=== PATIENT | male | born 1965 | race Caucasian/White ===

== ENCOUNTER 2017-09-07 18:51 | Emergency (ER) | payer BC ==
[~2017-09-07] VITALS: Ht 177.8 cm; Wt 117.9 kg
[2017-09-07] MEDS ORDERED: COZAAR 25 MG TA25 M1 PO (19:10)
[2017-09-07] MEDS ORDERED: MOBIC7.5 M1 PO (19:13)
[2017-09-07] MEDS ORDERED: NORCO 5-325 TA1 EACH PO (19:13)
[2017-09-07 19:48] LABS: ABSOLUTE NEUTROPHILS 7.7 thou/uL (1.4-8.2); BASOPHILS 0.4 % (0.0-2.0); EOSINOPHILS 2.9 % (0.0-3.0); HEMATOCRIT 42.1 % (42.0-52.0); HEMOGLOBIN 14.2 gm/dL (14.0-18.0); LYMPHOCYTES 9.3 % (24.0-44.0); MCH 29.2 pg (26.0-34.0); MCHC 33.8 g/dL (28.0-37.0); MCV 86.5 fL (80.0-100.0); MONOCYTES 9.6 % (1.0-8.0); PLATELET COUNT 212 thou/uL (150-400); POLYS 77.8 % (36.0-66.0); RBC 4.87 mil/uL (4.50-6.00); RDW 13.2 % (10.5-14.5)
[2017-09-07 19:50] LABS: CREATININE 1.7 mg/dL (0.7-1.3); POTASSIUM 3.3 mmol/L (3.5-5.1)
[2017-09-07 20:29] LABS: URINE BILIRUBIN NEGATIVE (Negative); URINE BLOOD TRACE (Negative); URINE CLARITY CLEAR; URINE COLOR YELLOW; URINE GLUCOSE-RANDOM* NEGATIVE (Negative); URINE KETONES NEGATIVE (Negative); URINE LEUKOCYTES-REFLEX NEGATIVE (Negative); URINE PROTEIN (DIPSTICK) NEGATIVE (Negative); URINE SPECIFIC GRAVITY <= 1.005 (1.005-1.035)
[2017-09-07 20:30] LABS: URINE NITRITE-REFLEX POSITIVE (Negative)
[2017-09-07 20:32] LABS: SQUAMOUS None Seen /LPF (0-3); URINE RBC 0-2 Rare /HPF (0-2); URINE WBC-REFLEX None Seen /HPF (0-5)
[2017-09-07 20:33] LABS: BACTERIA-REFLEX 1-9 Few /HPF (None Seen); CASTS None Seen /LPF (None Seen)
[2017-09-07 20:35] LABS: CRYSTALS None Seen /LPF (None Seen)
[2017-09-07] MEDS ORDERED: ZOFRAN ODT4 MG PO (20:57)
[2017-09-07] MEDS ORDERED: NORCO 7.5-3251 EACH PO (20:57)
[2017-09-07] MEDS ORDERED: SENNA-DOCUSATE1 EACH PO (20:57)
[2017-09-07] MEDS ORDERED: FLOMAX0.4 MG PO (20:57)
[2017-09-07 21:27] VITALS: BP 147/84
== END 2017-09-07 21:28 | disposition home or self-care (01) ==
LOC: ER 18:51
PROVIDERS: Emergency Medicine
DX: N20.1 Calculus of ureter (principal); Z87.891 Personal history of nicotine dependence

== ENCOUNTER 2017-09-10 12:18 | Inpatient (IN) | payer BC ==
[~2017-09-10] VITALS: Ht 177.8 cm; Wt 117.9 kg
[~2017-09-10 12:18] MED LIST: COZAAR 25 MG TA25 M1 PO; FLOMAX0.4 MG PO; MOBIC7.5 M1 PO; NORCO 5-325 TA1 EACH PO; NORCO 7.5-3251 EACH PO; SENNA-DOCUSATE1 EACH PO; ZOFRAN ODT4 MG PO
[2017-09-10 12:20] VITALS: BP 189/91
[2017-09-10 12:43] LABS: URINE BILIRUBIN NEGATIVE (Negative); URINE BLOOD TRACE (Negative); URINE CLARITY CLEAR; URINE COLOR YELLOW; URINE GLUCOSE-RANDOM* NEGATIVE (Negative); URINE KETONES NEGATIVE (Negative); URINE LEUKOCYTES-REFLEX NEGATIVE (Negative); URINE NITRITE-REFLEX NEGATIVE (Negative); URINE PROTEIN (DIPSTICK) NEGATIVE (Negative); URINE SPECIFIC GRAVITY <= 1.005 (1.005-1.035); URINE UROBILINOGEN 0.2 E.U./dl (0.2-1.0)
[2017-09-10 12:50] LABS: HEMATOCRIT 40.9 % (42.0-52.0); HEMOGLOBIN 13.8 gm/dL (14.0-18.0); MCHC 33.9 g/dL (28.0-37.0); MCV 85.7 fL (80.0-100.0); RBC 4.77 mil/uL (4.50-6.00); RDW 12.9 % (10.5-14.5); WBC 10.3 thou/uL (4.0-11.0)
[2017-09-10 13:01] LABS: CALCIUM 9.4 mg/dL (8.5-10.1); POTASSIUM 3.8 mmol/L (3.5-5.1)
[2017-09-10 13:07] LABS: ALBUMIN 3.8 g/dL (3.4-5.0); TOTAL BILIRUBIN 0.8 mg/dL (<0.1-1.0); TOTAL PROTEIN 7.4 g/dL (6.4-8.2)
[2017-09-10 14:03] VITALS: BP 189/91
[2017-09-10 14:14] VITALS: BP 147/73
[2017-09-10 15:21] VITALS: BP 156/83
[2017-09-10 20:29] VITALS: BP 153/86
[2017-09-11 04:40] VITALS: BP 139/73
[2017-09-11 05:32] LABS: CALCIUM 8.7 mg/dL (8.5-10.1); CREATININE 1.5 mg/dL (0.7-1.3); POTASSIUM 4.1 mmol/L (3.5-5.1)
[2017-09-11 08:47] VITALS: BP 168/93
[2017-09-11] MEDS ORDERED: PERCOCET PO (10:17)
[2017-09-11 14:48] VITALS: BP 168/93
[2017-09-19 16:08] LABS: STONE COLOR Orange (()); STONE SIZE 7x3x3 mm (()); STONE URIC ACID 100 % (()); STONE WEIGHT 62.8 mg (())
== END 2017-09-11 15:27 | disposition home or self-care (01) | DRG 683 ==
LOC: ER 12:18 → EROBS 13:43 → 4E 13:43
PROVIDERS: Emergency Medicine; Hospitalist; Physician Assistant
DX: N17.9 Acute kidney failure, unspecified (principal); N20.1 Calculus of ureter; I10 Essential (primary) hypertension; N13.9 Obstructive and reflux uropathy, unspecified; Z87.891 Personal history of nicotine dependence; Z79.899 Other long term (current) drug therapy
CPT/HCPCS: 10084

== ENCOUNTER 2019-03-21 17:38 | Emergency (ER) | payer BC ==
[~2019-03-21] VITALS: Ht 180.3 cm; Wt 113.4 kg
[~2019-03-21 17:38] MED LIST changes: +PERCOCET PO
[2019-03-21 18:16] LABS: ABSOLUTE NEUTROPHILS 7.7 thou/uL (1.4-8.2); BASOPHILS 0.6 % (0.0-2.0); EOSINOPHILS 2.7 % (0.0-3.0); HEMATOCRIT 44.3 % (42.0-52.0); HEMOGLOBIN 14.8 gm/dL (14.0-18.0); MCH 27.2 pg (26.0-34.0); MCHC 33.4 g/dL (28.0-37.0); MCV 81.2 fL (80.0-100.0); MONOCYTES 7.1 % (1.0-8.0); PLATELET COUNT 237 thou/uL (150-400); POLYS 79.6 % (36.0-66.0); RBC 5.45 mil/uL (4.50-6.00); WBC 9.6 thou/uL (4.0-11.0)
[2019-03-21 18:23] LABS: CALCIUM 9.8 mg/dL (8.5-10.1); CREATININE 1.3 mg/dL (0.7-1.3); POTASSIUM 3.6 mmol/L (3.5-5.1)
[2019-03-21 18:32] LABS: URINE BILIRUBIN NEGATIVE (Negative); URINE BLOOD 2+ (Negative); URINE CLARITY CLEAR; URINE COLOR YELLOW; URINE GLUCOSE-RANDOM* NEGATIVE (Negative); URINE KETONES NEGATIVE (Negative); URINE LEUKOCYTES-REFLEX NEGATIVE (Negative); URINE NITRITE-REFLEX NEGATIVE (Negative); URINE PROTEIN (DIPSTICK) 1+ (Negative); URINE SPECIFIC GRAVITY 1.015 (1.005-1.035); URINE UROBILINOGEN 0.2 E.U./dl (0.2-1.0)
[2019-03-21 18:43] LABS: CASTS None Seen /LPF (None Seen); MUCUS 0-3 Light strn/LPF (None Seen); SQUAMOUS 0-3 Few /LPF (0-3)
[2019-03-21 18:44] LABS: BACTERIA-REFLEX None Seen /HPF (None Seen); CRYSTALS None Seen /LPF (None Seen); URINE RBC 3-10 Few /HPF (0-2); URINE WBC-REFLEX 0-5 Rare /HPF (0-5)
[2019-03-21] MEDS ORDERED: HYDROCODON-ACE1 EAC7 PO (19:27)
[2019-03-21 19:45] VITALS: BP 161/89
== END 2019-03-21 19:45 | disposition home or self-care (01) ==
LOC: ER 17:38
PROVIDERS: Emergency Medicine
DX: N20.0 Calculus of kidney (principal); I10 Essential (primary) hypertension; Z87.891 Personal history of nicotine dependence; R11.10 Vomiting, unspecified